=== PATIENT | female | born 1985 | race Caucasian/White ===

== ENCOUNTER → 2016-08-01 | Outpatient (CLI) | payer OTHER | LOC: OD 13:43 | PROVIDERS: ATTEND Nurse Practitioner Acute Care | DX: S90.122A Contusion of left lesser toe(s) without damage to nail, initial encounter (principal); X58.XXXA Exposure to other specified factors, initial encounter ==

== ENCOUNTER 2017-02-02 05:40 | Day surgery (SDC) | payer OTHER ==
[2017-01-30 10:33] LABS: HEMATOCRIT 36.4 % (36.0-47.0); HEMOGLOBIN 12.5 g/dL (12.0-15.5); HGB HCT DIFFERENCE 1.1; MEAN CORPUSCULAR HEMOGLOBIN 30.8 pg (27.0-33.4); MEAN CORPUSCULAR HGB CONC 34.2 g/dL (32.0-36.0); MEAN CORPUSCULAR VOLUME 90 fl (80-97); RED BLOOD COUNT 4.04 10^6/uL (3.72-5.28); RED CELL DISTRIBUTION WIDTH 12.4 % (11.5-14.0); WHITE BLOOD COUNT 5.6 10^3/uL (4.0-10.5)
[2017-01-30 10:35] LABS: APPEARANCE,URINE CLOUDY; BILIRUBIN,URINE NEGATIVE (NEGATIVE); GLUCOSE, URINE NEGATIVE (NEGATIVE); KETONES,URINE NEGATIVE (NEGATIVE); LEUKOCYTE ESTERASE,URINE NEGATIVE (NEGATIVE); NITRITE,URINE NEGATIVE (NEGATIVE); PROTEIN,URINE NEGATIVE (NEGATIVE); URINE SPECIFIC GRAVITY 1.013; UROBILINOGEN,URINE NEGATIVE mg/dL (<2.0)
[~2017-02-02 05:40] MED LIST: LACTATED RINGERS 1000 ML IV PRN; LIDOCAINE 0.5% INJ-PF (5 MG/ML) 50 ML SDV SUBCUT PRN; SCOPOLAMINE HYDROBROMIDE 1.5 MG PATCH.TD72 TD PRN
[2017-02-02] MEDS ORDERED: FAMOTIDINE INJ/PF 20 MG/2 ML SDV IV ONE (06:24)
[2017-02-02] MEDS ORDERED: LACTATED RINGERS 1000 ML IV PRN (06:25)
[2017-02-02] MEDS ORDERED: RINGERS SOLUTION,LACTATED 500 ML IV ONE (06:30)
[2017-02-02] MEDS ORDERED: MIDAZOLAM 2 MG/2 ML INJ IV ONE (06:30)
[2017-02-02] MEDS ORDERED: MIDAZOLAM 2 MG/2 ML INJ ONE ×2 (06:32→07:23)
[2017-02-02] MEDS ORDERED: PROPOFOL INJ 200 MG/20 ML VIAL IV ONE ×2 (07:24→08:00)
[2017-02-02] MEDS ORDERED: HYDROMORPHONE HCL INJ/PF 2 MG/ML AMPULE ONE (07:24)
[2017-02-02] MEDS ORDERED: LIDOCAINE 2%/EPINEPHRINE INJ 20 ML VIAL ONE (07:40)
[2017-02-02] MEDS ORDERED: MEPERIDINE HCL/PF INJ 25 MG/1 ML DISP.SYRIN IV PRN (08:15)
[2017-02-02] MEDS ORDERED: MORPHINE SULFATE 10 MG/ML INJ IV PRN (08:15)
[2017-02-02] MEDS ORDERED: OXYCODONE-ACETAMINOPHEN 5-325 MG TABLET PO PRN ×4 (08:15→08:37)
[2017-02-02] MEDS ORDERED: DIPHENHYDRAMINE HCL 50 MG/ML VIAL IV PRN (08:15)
[2017-02-02] MEDS ORDERED: FENTANYL CITRATE INJ/PF 100 MCG/2 ML AMPUL IV PRN ×3 (08:15)
[2017-02-02] MEDS ORDERED: PROMETHAZINE HCL INJ 25 MG/1 ML VIAL IV PRN ×2 (08:15)
[2017-02-02] MEDS ORDERED: KETOROLAC TROMETHAMINE INJ/PF 30 MG/1 ML SDV ONE (08:28)
[2017-02-02] MEDS ORDERED: ACETAMINOPHEN 100 ML IV ONE (08:28)
[2017-02-02] MEDS ORDERED: ONDANSETRON HCL INJ/PF 4 MG/2 ML SDV ONE (08:31)
[2017-02-02] MEDS ORDERED: IBUPROFEN 800 MG TABLET PO PRN (08:36)
[2017-02-02] MEDS ORDERED: MORPHINE SULFATE 10 MG/ML INJ IM PRN (08:36)
[2017-02-02 10:18] VITALS: BP 113/78
--- NOTE | 2017-03-13 18:18 | OPERATIVE REPORT E ---
Operative Report NAME: SANGITA UREÑA : 1985 AGE: 31Y DATE OF SURGERY: ROOM: PREOPERATIVE DIAGNOSIS: Menorrhagia. POSTOPERATIVE DIAGNOSIS: Menorrhagia. OPERATION: Endometrial ablation with NovaSure device. SURGEON: Clemente Guzman D.O. TELEVISION SERVICER: None. ANESTHESIA: General endotracheal. COMPLICATIONS: None. TISSUE REMOVED OR ALTERED: None. ESTIMATED BLOOD LOSS: None. FINDINGS: 1. A uterine sound to 7 cm. 2. Cervix 2 cm in length with 3 cm in width and a total therapy time of 2 minutes. PROCEDURE: The patient was taken to the operating room where she was placed in the dorsal supine position upon the operating table. She was then administered her anesthesia. Once this was done, she was placed in the dorsal lithotomy position in Maximus stirrups. She was then prepped and draped in a normal sterile fashion. An open-sided speculum was then placed inside the patient's vagina. The cervix was easily visualized and grasped along the anterior lip with a single tooth tenaculum. The uterus was then sounded to 7 cm. The cervix was then dilated to a #24 [place]amese using the Hegar dilator. The NovaSure device was connected and found to be operating properly. It was placed inside the uterus, which revealed a cervical length of 2 cm with a uterine width of 3 cm. The NovaSure device was activated and a total therapy time of 2 minutes occurred. Following this, the device was taken apart and removed from the patient's uterus without difficulty. At this point in time, all instruments were removed from the patient's vagina and the procedure was terminated. All sponge, lap and needle counts were correct x2. The patient tolerated the procedure well. The patient was taken to recovery in stable condition. DICTATING PHYSICIAN: Clemente Guzman DO [id number] PHY#: [id number] ID: [id number] JOB#: [id number] ACCT: [id number] cc:Clemente Guzman D.O. >
== END 2017-02-02 10:15 | disposition home or self-care (01) ==
LOC: OROUT 05:40
PROVIDERS: ATTEND Obstetrics & Gynecology
PROC: 0U5B8ZZ Destruction of Endometrium, Via Natural or Artificial Opening Endoscopic (ICD-10-PCS; principal; 2017-02-02 07:30)
DX: N92.0 Excessive and frequent menstruation with regular cycle (principal); G90.2 Horner's syndrome; M19.90 Unspecified osteoarthritis, unspecified site; F32.9 Major depressive disorder, single episode, unspecified; Z87.891 Personal history of nicotine dependence; Z79.899 Other long term (current) drug therapy
CPT/HCPCS: 36415; 85027; 81025; 81001; 58563; J2250; J1885; J1170; J2405; J2704; S0028; J0131; 952; J3490

== ENCOUNTER 2017-04-03 10:55 | Emergency (ER) | payer OTHER ==
[2017-04-03] MEDS ORDERED: LIDOCAINE 5% (700 MG) TRANSDERMAL ADH..PATCH TP ONE (12:11)
[2017-04-03] MEDS ORDERED: ACETAMINOPHEN 325 MG TABLET PO ONE (12:11)
--- NOTE | 2017-04-03 12:12 | ER Document Report ---
HPI - HPI Patient complains to provider of: upper back pain Onset: Last week Onset/Duration: Persistent Quality of pain: Achy Pain Level: 5 Context: Patient presents complaining of upper back pain for the past week. Patient states pain will radiate to lateral sides of neck. Patient reports she has had neck pain off and on for the past month and has seen a primary doctor about this in the past. Patient states she does have an appointment with her primary doctor tomorrow for a recheck. Patient denies any traumatic injury. Patient does state that her had recent back surgery a few months ago and she has increased the amount of physical activity that she has been doing around the house at home. Patient denies any fever or urinary symptoms. Patient denies any cough or cold symptoms. Associated Symptoms: Other - Upper back pain. denies: Fever, Headache Exacerbated by: Movement Relieved by: Denies Similar symptoms previously: No Recently seen / treated by doctor: No - ROS ROS below otherwise negative: Yes Systems Reviewed and Negative: Yes All other systems reviewed and negative - CONSTITUTIONAL Constitutional: DENIES: Fever - NEURO Neurology: DENIES: Headache, Weakness - REPRODUCTIVE Reproductive: DENIES: : - MUSCULOSKELETAL Musculoskeletal: REPORTS: Back Pain, Neck Pain - DERM Skin Color: Normal Skin Problems: None Past Medical History - General Information source: Patient - Social History Smoking Status: Never Smoker Frequency of alcohol use: None Drug Abuse: None Occupation: None Lives with: Family Family History: Reviewed & Not Pertinent Patient has suicidal ideation: No Patient has homicidal ideation: No - Past Medical History Cardiac Medical History: Denies: Hx Coronary Artery Disease, Hx Heart Attack, Hx Hypertension Pulmonary Medical History: Denies: Hx Asthma, Hx Bronchitis, Hx COPD, Hx Pneumonia Neurological Medical History: Denies: Hx Cerebrovascular Accident, Hx Seizures Renal/ Medical History: Reports: Hx Ovarian Cysts. Denies: Hx Peritoneal Dialysis Musculoskeltal Medical History: Reports Hx Arthritis Psychiatric Medical History: Reports: Hx Anxiety, Hx Depression Past Surgical History: Reports: Hx Cholecystectomy, Hx Neurologic Surgery, Hx Orthopedic Surgery - spinal surgery - Immunizations Hx Diphtheria, Pertussis, Tetanus Vaccination: Yes Vertical Provider Document - CONSTITUTIONAL Agree With Documented VS: Yes Exam Limitations: No Limitations General Appearance: WD/WN, No Apparent Distress - INFECTION CONTROL TRAVEL OUTSIDE OF THE [place] IN LAST 30 DAYS: No - HEENT HEENT: Atraumatic, Normocephalic - NECK Neck: Normal Inspection, Supple - RESPIRATORY Respiratory: Breath Sounds Normal, No Respiratory Distress O2 Sat by Pulse Oximetry: 98 - CARDIOVASCULAR Cardiovascular: Regular Rate, Regular Rhythm, No Murmur - BACK Back: Abnormal Inspection - Bilateral trapezius muscle tenderness, thoracic midline tenderness to 7 area, no step-off deformity.. negative: CVA Tenderness- Right, CVA Tenderness-Left - MUSCULOSKELETAL/EXTREMETIES Musculoskeletal/Extremeties: MAEW, FROM Notes: Normal strength and muscle tone to bilateral upper extremities - NEURO Level of Consciousness: Awake, Alert, Appropriate Motor/Sensory: No Motor Deficit, No Sensory Deficit - DERM Integumentary: Warm, Dry, No Rash Course - Vital Signs Vital signs: Temp Pulse Resp BP Pulse Ox 98.5 F 99 18 113/73 98 04/03/17 11:08 04/03/17 11:08 04/03/17 11:08 04/03/17 11:08 04/03/17 11:08 - Laboratory Laboratory results interpreted by me: 04/03/17 13:16 Labs- Entire Visit 04/03/17 12:15 Urine HCG, Qual NEGATIVE - Diagnostic Test Radiology reviewed: Reports reviewed Discharge - Discharge Clinical Impression: Thoracic back pain Qualifiers: Chronicity: acute Back pain laterality: unspecified Qualified Code(s): M54.6 - Pain in thoracic spine Condition: Stable Disposition: HOME, SELF-CARE Instructions: Oral Narcotic Medication ([facility]), Upper Back Strain ([facility]), Warm Packs ([facility]) Additional Instructions: Return immediately for any new or worsening symptoms Followup with your primary care provider, call tomorrow to make a followup appointment You may try the Robaxin instead of Flexeril, do not take both medications together Prescriptions: Methocarbamol [Robaxin 500 Mg Tablet] 500 mg PO QID PRN #20 tablet PRN Reason: Naproxen [Naprosyn 250 Nmg Tablet] 1 tab PO BID #14 tablet Oxycodone HCl/Acetaminophen [Percocet 5-325 mg Tablet] 1 tab PO ASDIR PRN #8 tablet PRN Reason: Referrals: EDUARDO ORTEGA DO [Primary Care Provider] - Follow up tomorrow
[2017-04-03] MEDS ORDERED: METHOCARBAMOL 500 MG TABLET PO ONE (12:44)
[2017-04-03] MEDS ORDERED: OXYCODONE-ACETAMINOPHEN 5-325 MG TABLET PO ONE (12:44)
--- NOTE | 2017-04-03 13:13 | RADIOLOGY REPORT (SQ) ---
EXAM DESCRIPTION: T SPINE AP/LAT COMPLETED DATE/TIME: 04/03/2017 12:57 pm REASON FOR STUDY: back pain, t7 area COMPARISON: 04/21/2015 NUMBER OF VIEWS: Two views. TECHNIQUE: AP and lateral radiographic images acquired of the thoracic spine. LIMITATIONS: None. FINDINGS: MINERALIZATION: Normal. ALIGNMENT: Normal. No scoliosis. VERTEBRAE: No fracture or bone lesion. Maintained height, normal segmentation. DISCS: Multilevel disc space narrowing with osteophytes. HARDWARE: None in the spine. MEDIASTINUM AND SOFT TISSUES: Normal heart size and aortic contour. No soft tissue abnormality. VISUALIZED LUNG SIERRA: Clear. OTHER: No other significant finding. IMPRESSION: No acute findings in the thoracic spine. TECHNICAL DOCUMENTATION: JOB ID: [id number] [employer]- All Rights Reserved
[2017-04-03 13:29] VITALS: BP 110/70
== END 2017-04-03 13:28 | disposition home or self-care (01) ==
LOC: ER 10:55
DX: M54.6 Pain in thoracic spine (principal); Z90.49 Acquired absence of other specified parts of digestive tract
CPT/HCPCS: 72070; 81025; 99283

== ENCOUNTER → 2017-07-04 | Outpatient (CLI) | payer OTHER ==
--- NOTE | 2017-07-05 09:27 | RADIOLOGY REPORT (SQ) ---
EXAM DESCRIPTION: MRI CHEST WITHOUT COMPLETED DATE/TIME: 07/04/2017 8:49 pm REASON FOR STUDY: CHEST WALL PAIN COMPARISON: PA chest film 09/04/2015 Thoracic spine two views 04/03/2017 MRI thoracic spine 03/16/2016 CT abdomen pelvis 12/02/2014 TECHNIQUE: MRI of the lower thoracic spine and right lower ribs was obtained. Axial STIR, axial T1, coronal T1, coronal STIR and coronal T2 images were obtained. LIMITATIONS: None. FINDINGS: Patient's area of maximal pain was marked on her skin with a vitamin E capsule. Deep to the capsule, the right T12-L1 facet joint exhibits synovial thickening and bony spurring. Th ere is a 5 mm synovial cyst protruding off the superior aspect of the right T12-L1 facet joint on cor onal image 4. There is very mild reactive marrow edema in the right T12 pedicle on coronal image 3. No significant central canal or foraminal encroachment in the lower thoracic spine. Incidental finding of a 1 cm cyst posterior right lobe liver. IMPRESSION: Facet arthropathy with small synovial cyst, on the right at T12-L1 TECHNICAL DOCUMENTATION: JOB ID: [id number] [employer]- All Rights Reserved
== END ==
LOC: RAD 18:05
PROVIDERS: ATTEND Family Medicine
DX: R07.89 Other chest pain (principal); M71.38 Other bursal cyst, other site
CPT/HCPCS: 71550

== ENCOUNTER 2018-08-12 17:59 | Emergency (ER) | payer OTHER ==
--- NOTE | 2018-08-12 18:29 | ER Document Report ---
ED Medical Screen (RME) - General Chief Complaint: Abdominal Pain Stated Complaint: ABDOMINAL PAIN Time Seen by Provider: 08/12/18 18:26 Primary Care Provider: EDUARDO ORTEGA DO [Primary Care Provider] - Follow up as needed Mode of Arrival: Ambulatory Information source: Patient TRAVEL OUTSIDE OF THE [place] IN LAST 30 DAYS: No - HPI Patient complains to provider of: abd pain Onset: Yesterday - pt with h/o L -sided abd pain for the past day - Related Data Allergies/Adverse Reactions: No Known Allergies Allergy (Verified 01/23/17 14:06) Past Medical History - Past Medical History Cardiac Medical History: Denies: Hx Coronary Artery Disease, Hx Heart Attack, Hx Hypertension Pulmonary Medical History: Denies: Hx Asthma, Hx Bronchitis, Hx COPD, Hx Pneumonia Neurological Medical History: Denies: Hx Cerebrovascular Accident, Hx Seizures Renal/ Medical History: Reports: Hx Ovarian Cysts. Denies: Hx Peritoneal Dialysis Musculoskeltal Medical History: Reports Hx Arthritis Psychiatric Medical History: Reports: Hx Anxiety, Hx Depression Past Surgical History: Reports: Hx Abdominal Surgery, Hx Cholecystectomy, Hx Neurologic Surgery, Hx Orthopedic Surgery - spinal surgery - Immunizations Hx Diphtheria, Pertussis, Tetanus Vaccination: Yes Physical Exam - Vital signs Vitals: Temp Pulse Resp BP Pulse Ox 98 F 106 H 18 127/75 H 100 08/12/18 18:05 08/12/18 18:05 08/12/18 18:05 08/12/18 18:05 08/12/18 18:05 Course - Vital Signs Vital signs: Temp Pulse Resp BP Pulse Ox 98 F 106 H 18 127/75 H 100 08/12/18 18:05 08/12/18 18:05 08/12/18 18:05 08/12/18 18:05 08/12/18 18:05 Doctor's Discharge - Discharge Referrals: EDUARDO ORTEGA DO [Primary Care Provider] - Follow up as needed
[2018-08-12 18:49] LABS: ABSOLUTE EOSINOPHILS # (AUTO) 0.1 10^3/uL (0.0-0.6); ABSOLUTE LYMPHOCYTES (AUTO) 2.1 10^3/uL (0.5-4.7); ABSOLUTE MONOCYTES (AUTO) 0.4 10^3/uL (0.1-1.4); ABSOLUTE NEUT (AUTO) 4.1 10^3/uL (1.7-8.2); BASOPHILS % (AUTO) 0.5 % (0-2); EOSINOPHILS % (AUTO) 0.8 % (0-6); HEMATOCRIT 34.9 % (36.0-47.0); MEAN CORPUSCULAR HEMOGLOBIN 30.1 pg (27.0-33.4); MEAN CORPUSCULAR HGB CONC 34.4 g/dL (32.0-36.0); MEAN CORPUSCULAR VOLUME 88 fl (80-97); MONOCYTES % (AUTO) 6.3 % (3-13); PLATELET COUNT 274 10^3/uL (150-450); RED BLOOD COUNT 3.99 10^6/uL (3.72-5.28); RED CELL DISTRIBUTION WIDTH 12.9 % (11.5-14.0); SEGMENTED NEUTROPHILS % (AUTO) 61.4 % (42-78); TOTAL CELLS COUNTED % (AUTO) 100 %; WHITE BLOOD COUNT 6.6 10^3/uL (4.0-10.5)
[2018-08-12 18:53] LABS: APPEARANCE,URINE CLEAR; BILIRUBIN,URINE NEGATIVE (NEGATIVE); COLOR,URINE STRAW; GLUCOSE, URINE NEGATIVE (NEGATIVE); KETONES,URINE NEGATIVE (NEGATIVE); LEUKOCYTE ESTERASE,URINE NEGATIVE (NEGATIVE); NITRITE,URINE NEGATIVE (NEGATIVE); PROTEIN,URINE NEGATIVE (NEGATIVE); URINE SPECIFIC GRAVITY 1.005; UROBILINOGEN,URINE NEGATIVE mg/dL (<2.0)
[2018-08-12 19:07] LABS: ALANINE AMINOTRANSFERASE 32 U/L (9-52); ALBUMIN 4.6 g/dL (3.5-5.0); ALKALINE PHOSPHATASE 56 U/L (38-126); ANION GAP 10 (5-19); ASPARTATE AMINO TRANSFERASE 26 U/L (14-36); BILIRUBIN,DIRECT 0.1 mg/dL (0.0-0.4); BILIRUBIN,TOTAL 0.6 mg/dL (0.2-1.3); BLOOD UREA NITROGEN 10 mg/dL (7-20); CARBON DIOXIDE 30 mmol/L (22-30); CHLORIDE 102 mmol/L (98-107); GLUCOSE 105 mg/dL (75-110); LIPASE 63.1 U/L (23-300); POTASSIUM 4.3 mmol/L (3.6-5.0); SODIUM 141.6 mmol/L (137-145); TOTAL PROTEIN 7.8 g/dL (6.3-8.2)
--- NOTE | 2018-08-12 19:52 | RADIOLOGY REPORT (SQ) ---
EXAM DESCRIPTION: U/S ABDOMEN COMPLETE W/DOPPLER COMPLETED DATE/TIME: 08/12/2018 7:41 pm REASON FOR STUDY: abd pain- L sided COMPARISON: None. TECHNIQUE: Dynamic and static grayscale images acquired of the abdomen and recorded on PACS. Additio nal selected color Doppler and spectral images recorded. Note: Study does not meet criteria for complete doppler/duplex scan LIMITATIONS: None. FINDINGS: PANCREAS: No masses. Visualized pancreatic duct normal caliber. LIVER: No masses. Echotexture normal. LIVER VASCULATURE: Normal directional flow of the main portal vein and hepatic veins. GALLBLADDER: Surgically absent. ULTRASOUND-DETECTED GARCIA'S SIGN: Negative. INTRAHEPATIC DUCTS AND COMMON DUCT: CBD and intrahepatic ducts normal caliber. No filling defects. INFERIOR VENA CAVA: Normal flow. AORTA: No aneurysm. RIGHT KIDNEY:Normal size. Normal echogenicity. No solid or suspicious masses. No hydronephrosis. No c alcifications. LEFT KIDNEY: Normal size. Normal echogenicity. No solid or suspicious masses. No hydronephrosis. No calcifications. SPLEEN: Normal size. No solid masses. PERITONEAL AND PLEURAL SPACES: No ascites or effusions. OTHER: No other significant finding. IMPRESSION: No acute findings. TECHNICAL DOCUMENTATION: JOB ID: [id number] [place]-72 2010 [employer]- All Rights Reserved Reading location - IP/workstation name: [email or web address]
[2018-08-12] MEDS ORDERED: MORPHINE SULFATE 10 MG/ML INJ IV ONE (20:40)
[2018-08-12] MEDS ORDERED: NORMAL SALINE 1000 ML 1,000 ML IV ONE (20:41)
[2018-08-12] MEDS ORDERED: ONDANSETRON HCL INJ/PF 4 MG/2 ML SDV IV ONE (20:41)
--- NOTE | 2018-08-12 21:18 | ER Document Report ---
ED General - General Chief Complaint: Abdominal Pain Stated Complaint: ABDOMINAL PAIN Time Seen by Provider: 08/12/18 18:26 Primary Care Provider: EDUARDO ORTEGA DO [Primary Care Provider] - Follow up as needed Mode of Arrival: Ambulatory Notes: Patient is a 32-year-old female presents to the emergency department with 24 hours of left lower abdominal pain radiating to her left upper abdomen. Patient states she does have a history of pelvic venous congestion. States she intermittently does have pain in her left lower side. States typically she takes an at-home Percocet and the pain is relieved. States the pain has not been relieved for the last 24 hours which is why she presents to the emergency room. Patient denies any nausea, vomiting, diarrhea, she is afebrile. Patient denies any dysuria or vaginal discharge. Patient states she does have a history of IBS but has had "good bowel movements" today. Past medical history: PCO S, IBS, extensive with what sounds like a ventral hernia repair, ADHD Medications: Adderall, baclofen, Zanaflex, Percocet, Motrin Allergies: None Surgeries: Hernia repair, cholecystectomy Patient is unsure of her last menstrual cycle. TRAVEL OUTSIDE OF THE [place] IN LAST 30 DAYS: No - Related Data Allergies/Adverse Reactions: No Known Allergies Allergy (Verified 01/23/17 14:06) Past Medical History - General Information source: Patient - Social History Smoking Status: Former Smoker Family History: Reviewed & Not Pertinent Patient has suicidal ideation: No Patient has homicidal ideation: No - Past Medical History Cardiac Medical History: Denies: Hx Coronary Artery Disease, Hx Heart Attack, Hx Hypertension Pulmonary Medical History: Denies: Hx Asthma, Hx Bronchitis, Hx COPD, Hx Pneumonia Neurological Medical History: Denies: Hx Cerebrovascular Accident, Hx Seizures Renal/ Medical History: Reports: Hx Ovarian Cysts. Denies: Hx Peritoneal Dialysis Musculoskeletal Medical History: Reports Hx Arthritis Psychiatric Medical History: Reports: Hx Anxiety, Hx Depression Past Surgical History: Reports: Hx Abdominal Surgery, Hx Cholecystectomy, Hx Neurologic Surgery, Hx Orthopedic Surgery - spinal surgery - Immunizations Hx Diphtheria, Pertussis, Tetanus Vaccination: Yes Review of Systems - Review of Systems Constitutional: See HPI EENT: No symptoms reported Cardiovascular: No symptoms reported Respiratory: No symptoms reported Gastrointestinal: See HPI Genitourinary: See HPI Female Genitourinary: See HPI Musculoskeletal: No symptoms reported Skin: No symptoms reported Hematologic/Lymphatic: No symptoms reported Neurological/Psychological: No symptoms reported Physical Exam - Vital signs Vitals: Temp Pulse Resp BP Pulse Ox 98 F 106 H 18 127/75 H 100 08/12/18 18:05 08/12/18 18:05 08/12/18 18:05 08/12/18 18:05 08/12/18 18:05 - Notes Notes: GENERAL: Alert, interacts well. No acute distress. HEAD: Normocephalic, atraumatic. EYES: Pupils equal, round, and reactive to light. Extraocular movements intact. ENT: Oral mucosa moist, tongue midline. NECK: Full range of motion. Supple. Trachea midline. LUNGS: Clear to auscultation bilaterally, no wheezes, rales, or rhonchi. No respiratory distress. HEART: Regular rate and rhythm. No murmur ABDOMEN: Soft, Non-distended. Bowel sounds present in all 4 quadrants. Generalized tenderness noted left upper quadrant and also left pelvic region. No Banda sign noted, no McBurney's point tenderness. No pain periumbilical. EXTREMITIES: Moves all 4 extremities spontaneously. No edema, normal radial and dorsalis pedis pulses bilaterally. No cyanosis. BACK: no cervical, thoracic, lumbar midline tenderness. No saddle anesthesia, normal distal neurovascular exam. No CVA tenderness noted bilaterally NEUROLOGICAL: Alert and oriented x3. Normal speech. cranial nerves II through XII grossly intact PSYCH: Normal affect, normal mood. SKIN: Warm, dry, normal turgor. No rashes or lesions noted. Course - Re-evaluation Re-evalutation: Patient's labs show no signs of leukocytosis, no signs of anemia, no signs of electrolyte abnormalities, no signs of urinary tract infection. Patient's initial abdominal ultrasound was ordered by [facility] provider. This shows no acute findings. Upon my examination patient states that the pain started in her left lower pelvic region and radiated up to her left upper quadrant. Patient states she does have an extensive history of pelvic venous congestion and ovarian cysts. Ultrasound transvaginal was ordered and reveals no abnormalities. Bilateral ovaries have normal Doppler flow with no mass lesions noted. Discussed this at length with patient at bedside. She states "I want to know what is wrong with me." Discussed use of CT imaging abdomen pelvis, risk of radiation at this time. Patient wishes to proceed with continuing imaging modality. 03/04/19 00:[address] does show signs of pelvic congestion syndrome. Discussed this with patient at length. She states that she has seen [facility] at [facility] for this in the past. States they told her that they wanted to do surgery. At that point time she did not want to have surgery which is why she has not followed up. Discussed giving her phone numbers for our [facility] technical communication teacher Dr. Hinds. Patient is agreeable with this plan. Patient's vitals are stable and her pain is well controlled with medications in the emergency room. Discussed continued use of her Percocet at home. Follow-up with [facility], patient stable for discharge. 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 I am given you phone numbers for our [facility] CAR[facility] on-call Dr. Hinds. Please make sure you follow-up with her at your earliest convenience. Please also continue to take your At Home Percocet for generalized pain. Please immediately return to the emergency room should he have any other concerning symptoms. Referrals: EDUARDO ORTEGA DO [Primary Care Provider] - Follow up as needed SUSY HINDS MD [ACTIVE STAFF] - Follow up as needed
--- NOTE | 2018-08-12 22:59 | RADIOLOGY REPORT (SQ) ---
EXAM DESCRIPTION: US TRANSVAGINAL COMPLETED DATE/TME: 08/12/2018 20:41 CLINICAL HISTORY: 32 years, Female, left pelvic pain COMPARISON:None. TECHNIQUE: Grayscale and Doppler sonogram of the pelvis. Transvaginal technique was used for better evaluation of the pelvic viscera FINDINGS: The uterus measures 8.8 cm longitudinally. Trace amount of fluid in the endometrial canal. Endometrial stripe: 8 mm in thickness Right ovary: Measures 3 x 2.1 x 2 cm. Normal doppler flow. No mass lesion. Left ovary: Measures 2.2 x 1.8 x 2.2 cm. Normal doppler flow. No mass lesion. Free fluid: None. IMPRESSION: No acute sonographic abnormality.
[2018-08-12] MEDS ORDERED: HYDROMORPHONE HCL INJ/PF 2 MG/ML AMPULE IV ONE (23:04)
--- NOTE | 2018-08-13 00:09 | RADIOLOGY REPORT (SQ) ---
EXAM DESCRIPTION: CT ABDOMEN PELVIS WITH IV CONTRAST COMPLETED DATE/TME: 08/12/2018 00:00 CLINICAL HISTORY: 32 years, Female, left lower abdominal pain Comparison: None TECHNIQUE: Contiguous axial CT images of the abdomen and pelvis were obtained. Sagittal and coronal reformats were reviewed. This exam was performed according to our departmental dose-optimization program, which includes automated exposure control, adjustment of the mA and/or kV according to patient size and/or use of iterative reconstruction technique. FINDINGS: Lung bases: Clear. Liver:Unremarkable. No focal liver lesion. Gallbladder:Cholecystectomy clips seen in gallbladder fossa. Spleen:Unremarkable Pancreas: Pancreas is unremarkable. Adrenal glands:Within normal limits. Kidneys/ureters:Within normal limits Stomach/small bowel/colon: Stomach is unremarkable. Small bowel is unremarkable. Colon is unremarkable. Appendix: No evidence of appendicitis. Peritoneum: No free fluid. Vascular structures: Dilated ovarian veins measuring up to 11 mm in diameter. There are also dilated periuterine veins. Lymph nodes: No abnormal lymph nodes. Bladder:Unremarkable. Pelvic organs: No acute abnormality Bones: No acute osseous abnormality. Soft tissues: Unremarkable.. IMPRESSION: No acute intra-abdominal abnormality. Findings suggestive of pelvic congestion syndrome in the correct clinical setting.
[2018-08-13 01:34] VITALS: BP 123/84
== END 2018-08-13 01:34 | disposition home or self-care (01) ==
LOC: ER 17:59
DX: N94.89 Other specified conditions associated with female genital organs and menstrual cycle (principal); R10.32 Left lower quadrant pain; R10.812 Left upper quadrant abdominal tenderness; F90.9 Attention-deficit hyperactivity disorder, unspecified type; Z79.899 Other long term (current) drug therapy; Z79.1 Long term (current) use of non-steroidal anti-inflammatories (NSAID); Z79.891 Long term (current) use of opiate analgesic; Z87.891 Personal history of nicotine dependence; Z87.42 Personal history of other diseases of the female genital tract
CPT/HCPCS: 99284; 96361; 96374; 96375; 36415; 83690; 85025; 81025; 80053; 81001; 76700; 76830; 93976; 74177; J2270; J1170; J2405; J7030

== ENCOUNTER → 2019-03-29 | Outpatient (CLI) | payer OTHER ==
--- NOTE | 2019-03-29 12:40 | RADIOLOGY REPORT (SQ) ---
EXAM DESCRIPTION: FOOT LEFT COMPLETE COMPLETED DATE/TIME: 03/29/2019 10:53 am REASON FOR STUDY: LEFT FOOT PAIN M79.672 PAIN IN LEFT FOOT COMPARISON: None. NUMBER OF VIEWS: Three views. TECHNIQUE: AP, lateral and oblique radiographic images acquired of the left foot. LIMITATIONS: None. FINDINGS: MINERALIZATION: Normal. BONES: No acute fracture or dislocation. No worrisome bone lesions. JOINTS: No effusions. SOFT TISSUES: No soft tissue swelling. No foreign body. OTHER: No other significant finding. IMPRESSION: NEGATIVE STUDY OF THE LEFT FOOT. NO RADIOGRAPHIC EVIDENCE OF ACUTE INJURY. TECHNICAL DOCUMENTATION: JOB ID: [id number] [employer]- All Rights Reserved Reading location - IP/workstation name: [email or web address]
== END ==
LOC: OD 10:27
PROVIDERS: ATTEND Nurse Practitioner Family
DX: M79.672 Pain in left foot (principal)

== ENCOUNTER → 2019-06-03 | Outpatient (CLI) | payer OTHER ==
--- NOTE | 2019-06-04 12:34 | RADIOLOGY REPORT (SQ) ---
EXAM DESCRIPTION: NM 3 PHASE BONE SCAN COMPLETED DATE/TIME: 06/04/2019 9:05 am REASON FOR STUDY: M84.375A STRESS FRACTURE, LEFT FOOT, INITIAL ENCOUNTER FOR FRACTURE M84.375A STRE SS FRACTURE, LEFT FOOT, INITIAL ENCOUNTER FOR F COMPARISON: None. RADIONUCLIDE AND DOSE: 21.7 millicuries Tc99m MDP. The route of agent administration: Intravenous. ADDITIONAL DRUGS AND DOSES: None. TECHNIQUE: Following injection of the radiopharmaceutical, serial blood flow images acquired. Equil ibrium blood pool images then acquired. Routine delayed images at 21 hours acquired of the areas of clinical concern with additional focused images as needed. AREA OF INTEREST: Right foot LIMITATIONS: None. FINDINGS: VASCULAR FLOW IMAGES: Asymmetric increased flow in the right lower extremity. BLOOD POOL IMAGES: Asymmetric increased flow in the right lower extremity. BONES: Increased activity in the distal tibia and overlying the hindfoot and midfoot on delayed imagi ng. This again is on the right. KIDNEYS: Not imaged. OTHER: No other significant finding. IMPRESSION: Abnormal accumulation of activity involving the right lower extremity as described. No abnormal uptake on the left. Changes on the right may be due to old injury or arthritic change. Cli nical correlation is needed. COMMENT: Quality measure 147: Current bone scan is compared with any available plain radiographs, p rior bone scans, and CT/MRI. TECHNICAL DOCUMENTATION: JOB ID: [id number] [employer]- All Rights Reserved Reading location - IP/workstation name: [email or web address]
== END ==
LOC: RAD 11:37
PROVIDERS: ATTEND Family Medicine
DX: M84.375A Stress fracture, left foot, initial encounter for fracture (principal)
CPT/HCPCS: 78315; A9561; Q9969